=== PATIENT | female | born 1970 | race Caucasian/White ===

== ENCOUNTER 2020-11-05 12:22 | Outpatient (CLI) | payer OTHER | END 2020-11-05 12:23 | disposition home or self-care (01) | LOC: BICMRI 12:22 | PROVIDERS: ATTEND Anesthesiology | DX: M47.816 Spondylosis without myelopathy or radiculopathy, lumbar region (principal); M47.812 Spondylosis without myelopathy or radiculopathy, cervical region; M25.561 Pain in right knee; M54.5 Low back pain; M50.322 Other cervical disc degeneration at C5-C6 level; M25.461 Effusion, right knee; M67.461 Ganglion, right knee; M22.2X1 Patellofemoral disorders, right knee | CPT/HCPCS: 72040; 72148 ==